=== PATIENT | male | born 1985 | race Caucasian/White ===

== ENCOUNTER 2018-12-21 14:51 | Emergency (ER) | payer SELFPAY ==
[~2018-12-21] VITALS: Ht 182.9 cm; Wt 97.7 kg
[2018-12-21 15:08] VITALS: Ht 182.9 cm; Wt 97.7 kg
[2018-12-21 15:41] LABS: BASOPHILS 0.1 % (0-2); EOSINOPHILS 0.4 % (0-7); HEMOGLOBIN 18.6 g/dL (13.5-17.5); IMMATURE GRANULOCYTES 0.2 % (0-5); LYMPHOCYTES 4.4 % (15-50); MCH 31.1 pg (26.0-34.0); MCHC 36.5 g/dL (31.0-37.0); MCV 85.3 fL (80.0-100.0); MEAN PLATELET VOLUME 10.6 fL (7.4-10.4); MONOCYTES 3.4 % (2-11); NEUTROPHILS 91.5 % (40-80); PLATELET COUNT 263 10x3/uL (130-400); RBC 5.98 10x6/uL (4.20-6.10); RDW 13.1 % (11.5-14.5); WBC 14.2 10x3/uL (4.8-10.8)
[2018-12-21 15:53] LABS: ALBUMIN 4.7 g/dL (3.4-5.0); ALKALINE PHOSPHATASE 88 U/L (46-116); ALT (SGPT) 30 U/L (10-68); BILIRUBIN - TOTAL 1.03 mg/dL (0.2-1.3); CALC OSMOLALITY 283 mosm/kg (275-300); CALCIUM 9.3 mg/dL (8.5-10.1); CARBON DIOXIDE 26.9 mmol/L (21.0-32.0); CHLORIDE - SERUM 103 mmol/L (98-107); CREATININE - SERUM 1.2 mg/dL (0.6-1.3); GLUCOSE 119 mg/dL (74-106); POTASSIUM - SERUM 4.3 mmol/L (3.5-5.1); PROTEIN - SERUM 8.8 g/dL (6.4-8.2); SODIUM 139 mmol/L (136-145); UREA NITROGEN 26 mg/dL (7-18); eGFR NON AFRICAN AMERICAN 75 mL/min (90-120)
[2018-12-21 15:55] LABS: AMYLASE - SERUM 61 U/L (25-115); LIPASE 100 U/L (73-393)
[2018-12-21 15:56] LABS: TROPONIN-I < 0.017 ng/mL (0.000-0.060)
[2018-12-21 17:02] LABS: APPEARANCE CLEAR (CLEAR); COLOR YELLOW (YELLOW)
[2018-12-21 17:03] LABS: BILIRUBIN NEGATIVE (NEGATIVE); GLUCOSE NEGATIVE (NEGATIVE); KETONE NEGATIVE (NEGATIVE); NITRITE NEGATIVE (NEGATIVE); PROTEIN NEGATIVE (NEGATIVE); UROBILINOGEN NORMAL (NORMAL)
[2018-12-21 19:21] LABS: APPEARANCE CLEAR (CLEAR); COLOR YELLOW (YELLOW); GLUCOSE NEGATIVE (NEGATIVE); NITRITE NEGATIVE (NEGATIVE); PROTEIN NEGATIVE (NEGATIVE)
[2018-12-21 19:22] LABS: BILIRUBIN NEGATIVE (NEGATIVE); KETONE NEGATIVE (NEGATIVE); UROBILINOGEN NORMAL (NORMAL)
[2018-12-21 19:23] LABS: BACTERIA FEW /hpf (NONE SEEN); RED CELLS - URINE OCC /hpf (0-5)
[2018-12-21] MEDS ORDERED: ZOFRAN4 MG PO (20:10)
[2018-12-21] MEDS ORDERED: PHENERGAN25 M1 PO (20:10)
[2018-12-21 20:33] VITALS: BP 103/62
== END 2018-12-21 20:33 | disposition home or self-care (01) ==
LOC: D.ER 14:51
PROVIDERS: Family Medicine
DX: E86.0 Dehydration (principal); R11.2 Nausea with vomiting, unspecified; J02.9 Acute pharyngitis, unspecified